=== PATIENT | male | born 1945 | race Caucasian/White ===

== ENCOUNTER 2017-06-20 09:38 | Day surgery (SDC) | payer MEDICARE, BC ==
[~2017-06-20] VITALS: Ht 185.4 cm; Wt 91.6 kg
[2017-06-20] MEDS ORDERED: LIPITOR20 MG PO (10:06)
[2017-06-20] MEDS ORDERED: PRINIVIL20 MG PO (10:06)
[2017-06-20] MEDS ORDERED: ASPIRIN 81M81 MG/TA2 PO (10:07)
[2017-06-20 10:14] VITALS: BP 112/78; PULSE 82; TEMP 97.1
[2017-06-20 11:34] VITALS: BP 90/63; PULSE 76; TEMP 97.7
[2017-06-20 11:49] VITALS: BP 83/67; PULSE 61
[2017-06-20 12:04] VITALS: BP 100/65; PULSE 65
[2017-06-20 12:19] VITALS: BP 109/67; PULSE 61
[2017-06-20 13:36] VITALS: BP 95/56; PULSE 55
== END 2017-06-20 12:30 | disposition home or self-care (01) ==
LOC: SDCO 09:38
DX: Z12.11 Encounter for screening for malignant neoplasm of colon (principal); K57.30 Diverticulosis of large intestine without perforation or abscess without bleeding; I10 Essential (primary) hypertension; E78.00 Pure hypercholesterolemia, unspecified
CPT/HCPCS: J2250; J3010; J7030